=== PATIENT | male | born 1980 | race Caucasian/White ===

== ENCOUNTER 2017-09-20 08:19 | Emergency (ER) | payer SELFPAY ==
[2017-09-20 08:27] VITALS: BP 140/94
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
--- NOTE | 2017-09-20 09:29 | RADIOLOGY REPORT (SQ) ---
EXAM DESCRIPTION: TOE RIGHT COMPLETED DATE/TIME: 09/20/2017 9:20 am REASON FOR STUDY: injury to R toe x 1 day ago COMPARISON: None. NUMBER OF VIEWS: Three views. TECHNIQUE: AP, lateral, and oblique images acquired of the right great toe of the right foot. LIMITATIONS: None. FINDINGS: MINERALIZATION: Normal. BONES: No acute fracture or dislocation. Subchondral cystic change at the base of the proximal phala nx of the right great toe. JOINTS: No effusions. SOFT TISSUES: Soft tissue swelling right great toe. No foreign body. OTHER: No other significant finding. IMPRESSION: 1 Soft tissue swelling. Correlation suggested. 2 No acute osseous findings. COMMENT: SITE OF TRAUMA/COMPLAINT MARKED/STAMP COMPLETED: NO. TECHNICAL DOCUMENTATION: JOB ID: [id number] [employer]- All Rights Reserved Reading location - IP/workstation name: [email or web address]
[2017-09-20] MEDS ORDERED: HYDROCODONE/ACETAMINOPHEN 5-325 MG (6 TAB/ER DISP) PO PRN (09:53)
== END 2017-09-20 10:39 | disposition home or self-care (01) ==
LOC: ER 08:19
DX: S93.501A Unspecified sprain of right great toe, initial encounter (principal); S91.201A Unspecified open wound of right great toe with damage to nail, initial encounter; M79.674 Pain in right toe(s); X58.XXXA Exposure to other specified factors, initial encounter
CPT/HCPCS: 99283

== ENCOUNTER 2017-10-12 23:05 | Emergency (ER) | payer SELFPAY ==
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
[2017-10-12] MEDS ORDERED: HALOPERIDOL LACTATE INJ 5 MG/1 ML VIAL IV ONE (23:27)
[2017-10-12] MEDS ORDERED: LORAZEPAM INJ 2 MG/1 ML VIAL IV ONE (23:27)
[2017-10-12] MEDS ORDERED: THIAMINE HCL 100 MG in NORMAL SALINE 50 ML IV ONE (23:28)
[2017-10-12 23:39] LABS: ABSOLUTE BASOPHILS # (AUTO) 0.1 10^3/uL (0.0-0.2); ABSOLUTE EOSINOPHILS # (AUTO) 0.2 10^3/uL (0.0-0.6); ABSOLUTE LYMPHOCYTES (AUTO) 4.7 10^3/uL (0.5-4.7); ABSOLUTE NEUT (AUTO) 7.3 10^3/uL (1.7-8.2); BASOPHILS % (AUTO) 1.1 % (0-2); EOSINOPHILS % (AUTO) 1.2 % (0-6); HEMATOCRIT 50.6 % (37.9-51.0); HEMOGLOBIN 17.7 g/dL (13.5-17.0); LYMPHOCYTES % (AUTO) 35.3 % (13-45); MEAN CORPUSCULAR HGB CONC 35.1 g/dL (32.0-36.0); MEAN CORPUSCULAR VOLUME 88 fl (80-97); MONOCYTES % (AUTO) 7.2 % (3-13); PLATELET COUNT 336 10^3/uL (150-450); RED BLOOD COUNT 5.73 10^6/uL (4.35-5.55); RED CELL DISTRIBUTION WIDTH 13.5 % (11.5-14.0); SEGMENTED NEUTROPHILS % (AUTO) 55.2 % (42-78); TOTAL CELLS COUNTED % (AUTO) 100 %; WHITE BLOOD COUNT 13.3 10^3/uL (4.0-10.5)
[2017-10-12 23:53] LABS: ALANINE AMINOTRANSFERASE 84 U/L (21-72); ALBUMIN 5.2 g/dL (3.5-5.0); ALCOHOL 177 mg/dL (NONE DETECTED); ALKALINE PHOSPHATASE 78 U/L (38-126); ANION GAP 18 (5-19); ASPARTATE AMINO TRANSFERASE 59 U/L (17-59); BILIRUBIN,DIRECT 0.4 mg/dL (0.0-0.4); BILIRUBIN,TOTAL 0.6 mg/dL (0.2-1.3); BLOOD UREA NITROGEN 16 mg/dL (7-20); CALCIUM 10.1 mg/dL (8.4-10.2); CARBON DIOXIDE 24 mmol/L (22-30); CHLORIDE 101 mmol/L (98-107); GLUCOSE 93 mg/dL (75-110); POTASSIUM 3.7 mmol/L (3.6-5.0); SODIUM 142.7 mmol/L (137-145); TOTAL PROTEIN 9.7 g/dL (6.3-8.2)
[2017-10-13] MEDS ORDERED: LORAZEPAM INJ 2 MG/1 ML VIAL IV ONE (00:07)
[2017-10-13 01:56] VITALS: BP 142/79
== END 2017-10-13 01:56 | disposition home or self-care (01) ==
LOC: ER 23:05
DX: R41.82 Altered mental status, unspecified (principal); R44.1 Visual hallucinations; F41.9 Anxiety disorder, unspecified; F17.210 Nicotine dependence, cigarettes, uncomplicated; Z88.2 Allergy status to sulfonamides
CPT/HCPCS: 96376; 99285; 96374; 96375; 36415; 80307; 83735; 85025; 80053; J1630; J2060 ×2